=== PATIENT | female | born 1985 | race Caucasian/White ===

== ENCOUNTER → 2018-07-25 | Outpatient (CLI) | payer BC | LOC: FIMAGING 07:33 | PROVIDERS: ATTEND Advanced Practice Midwife | DX: Z34.91 Encounter for supervision of normal pregnancy, unspecified, first trimester (principal); Z3A.20 20 weeks gestation of pregnancy ==

== ENCOUNTER 2018-12-04 23:38 | Inpatient (IN) | payer BC ==
[2018-12-04] MEDS ORDERED: OLIVE OIL 118 ML BTL MISC ONE (23:53)
[2018-12-04] MEDS ORDERED: AMMONIA AROMATIC 1 EACH AMP IH ONE (23:53)
[2018-12-04] MEDS ORDERED: LIDOCAINE 1% 300 MG/30 ML SDV ONE (23:53)
[2018-12-04] MEDS ORDERED: TERBUTALINE SULFATE 1 MG/ML VIAL ONE (23:53)
[2018-12-04] MEDS ORDERED: OLIVE OIL 118 ML BTL MISC PRN (23:54)
[2018-12-04] MEDS ORDERED: OXYTOCIN 10 UNIT/ML VIAL ONE (23:54)
[2018-12-04] MEDS ORDERED: EPSOM SALT 454 GM TP PRN (23:54)
[2018-12-04] MEDS ORDERED: MISOPROSTOL 200 MCG TAB PO PRN (23:54)
[2018-12-04] MEDS ORDERED: AMMONIA AROMATIC 1 EACH AMP IH PRN (23:54)
[2018-12-04] MEDS ORDERED: TERBUTALINE SULFATE 1 MG/ML VIAL IV PRN (23:54)
[2018-12-04] MEDS ORDERED: MISOPROSTOL 200 MCG TAB ONE (23:54)
[2018-12-04] MEDS ORDERED: IBUPROFEN 600 MG TAB PO PRN (23:54)
[2018-12-04] MEDS ORDERED: LIDOCAINE 1% 300 MG/30 ML SDV SC PRN (23:54)
[2018-12-04] MEDS ORDERED: OXYTOCIN/RINGERS LACTATE 1,000 ML IV PRN (23:54)
[2018-12-04] MEDS ORDERED: LR 1,000 ML IV PRN (23:54)
--- NOTE | 2018-12-04 23:56 | PDGENHP ---
History and Physical History and Physical: CARE: [facility] HPI: Patient is a 43 yo G 3 P 2 @ 39.1 weeks who presents to L&D with complaints of strong uterine contractions for past 3 hours. EDC: 12/11/18 which is based on LMP: 03/06/18 which is known and consistent with Ultrasound at 8.5 weeks. Her is complicated by: hx of LGA baby, normal early 1 hr with this Review of Systems: Constitutional: Denies any fever, chills, or fatigue HEENT: denies any visual changes, difficulty swallowing, hearing loss Cardiovascular: Denies any chest pain, palpitations, leg swelling Respiratory: denies any cough, wheezing, or shortness of breathe GI: Denies any nausea, vomiting, diarrhea, constipation : denies any dysuria, urgency, frequency, vaginal bleeding Musculoskeletal: denies any muscle or bone pain Skin: denies any rashes Neuro: denies any headache, seizures, lightheadedness, dizziness, or loss of consciousness Psychiatric: denies any depression, anxiety, or SI/HI thoughts HISTORY: Previous OB history: 2014 girl 8#1 40 weeks, 2016 boy 9#15 41 weeks [facility] Family history: non-contributory Past medical history: denies Past surgical history: ear's pinned age 22, wisdom teeth Medications: PNV Allergies (list reaction): NKDA LABS: Rh: O+ ABS: Neg Rubella: Immune HbsAg: NR HIV: NR VDRL: NR 1hr: 96 GC: Neg Chlamydia: Neg Pap: Normal 2016 GBS: neg BMI: (prepreg) 18 PHYSICAL EXAM: Constitutional: WN, A&Ox3 HEENT: normocephalic atraumatic, supple Heart: RRR, no murmur Chest: CTA-B Skin: warm, dry, intact Abdomen: Soft, nontender, gravid SVE: 10/100/0 Extremities: trace edema, negative homans sign Neuro: grossly normal Psych: normal affect assessment: FHT baseline 145, +accels, no decels, moderate variability Contractions: toco q 3 min Assessment: 1)33 yo with IUP@ 39.1 weeks 2) spontaneous labor 3) GBS neg 4) Cat 1 FHR tracing Plan: 1) Admit to L&D 2) Anticipate
[2018-12-05] MEDS ORDERED: HYDROCORTISONE 0.5% CREAM TP PRN (01:17)
[2018-12-05 01:25] LABS: PLATELET COUNT 215 10^3/uL (150-400)
--- NOTE | 2018-12-05 01:26 | OBDEL ---
Info Type: Vaginal Presentation at Delivery: Vertex L&D Analgesia/Anesthesia Type: None GBS+: No - Hospital Course Intrapartum: 12/05/18 01:21 mom arrived completely dilated with some urge to push. Indications for Delivery: Spontaneous Labor Vaginal Delivery - Delivery Provider Delivery Physician/CNM: Mariela Lee - Labor and Delivery Onset of Contractions Date: 12/04/18 Onset of Contractions Time: 22:00 Onset of Contractions Type: Spontaneous Rupture of Membranes Date: 12/05/18 Rupture of Membranes Time: 00:15 Rupture of Membranes Type: Spontaneous Amniotic Fluid Color: Clear Dilation Complete Date: 12/04/18 Dilation Complete Time: 23:45 Placenta Delivery Date: 12/05/18 Placenta Delivery Time: 00:30 Total Hours of Labor: 2 Laceration: 1st Degree Repair: 3-0, Chromic Vaginal Sponge Count Correct: Yes Vaginal Needle Count Correct: Yes Vaginal Sweep Performed: Yes Delivery Events: None [place] Data DARRIAN: 12/11/18 Gestational Age: 39 week(s) and 1 day(s) Perez Delivery Date: 12/05/18 Delivery Time: 00:18 Sex of Infant: Female Score (1 Min): 7 Score (5 Min): 8 ICD10 Worksheet Patient Problems: Problems Problem Status Onset 40 weeks gestation of Acute Incomplete uterine prolapse Acute (normal spontaneous vaginal delivery) Acute - ICD10 Problem Qualifiers (1) Incomplete uterine prolapse (2) (normal spontaneous vaginal delivery)
[2018-12-05] MEDS ORDERED: OXYTOCIN/RINGERS LACTATE 500 ML IV SCH (01:30)
[2018-12-05] MEDS: CEPACOL LOZENGE PO PRN ×5 (06:37→23:12)
[2018-12-05] MEDS: ACETAMINOPHEN 325 MG TAB PO PRN ×3 (07:47→21:31)
[2018-12-05] MEDS: DOCUSATE SODIUM 100 MG CAP PO PRN ×2 (07:48→21:32)
[2018-12-05] MEDS: IBUPROFEN 600 MG TAB PO PRN ×3 (07:48→21:32)
[2018-12-05] MEDS ORDERED: EPSOM SALT 454 GM TP ONE (10:17)
--- NOTE | 2018-12-06 14:15 | OBPP ---
Progress Note Assessment/Plan: Assessment: 33 y/o P3 s/p ppd #1 anemia Plan: Routine pp care Ferrous sulfate daily Anticipate d/c tomorrow 12/06/18 15:28 Subjective/ Course: 12/06/18 15:29 Patient is doing well. Reports lochia to be light, pain controlled with oral medication, tolerating regular diet and voiding. is going well. Objective: 12/05/18 01:10 Patient ABO/Rh O POSITIVE 12/05/18 01:10 Temp Pulse Resp BP Pulse Ox 36.2 C 75 16 110/66 96 12/06/18 08:30 12/06/18 08:30 12/06/18 08:30 12/06/18 08:30 12/05/18 20:00 Uterine Position/Fundal Height: At Umbilicus Uterine Tone: Firm
[2018-12-06] MEDS: FERROUS SULFATE 325 MG TAB PO SCH (15:13)
[2018-12-07 07:31] VITALS: BP 113/82
[2018-12-07] MEDS: FERROUS SULFATE 325 MG TAB PO SCH (07:31)
[2018-12-07] MEDS: DOCUSATE SODIUM 100 MG CAP PO PRN (07:31)
[2018-12-07] MEDS ORDERED: EPSOM SALT 454 GM TP ONE (08:31)
[2018-12-07] MEDS ORDERED: EPSOM SALT 454 GM TP PRN (08:44)
--- NOTE | 2018-12-07 10:54 | OBGCSDC ---
General Delivery Information - General Info : 3 Para: 3 Abortions: 0 Type: Vaginal L&D Analgesia/Anesthesia Type: None Admission Date: 12/04/18 Labs: Patient ABO/Rh O POSITIVE 12/05/18 01:10 Hct 34.3 % (38.0-47.0) L 12/05/18 01:10 - Hospital Course Intrapartum: 12/05/18 01:21 mom arrived completely dilated with some urge to push. : 12/06/18 15:29 Patient is doing well. Reports lochia to be light, pain controlled with oral medication, tolerating regular diet and voiding. is going well. 12/07/18 10:53 S) Pt doing well, reports min pain and bleeding. she is ambulating and voiding without difficulty. She is . She desires discharge home today. O) VSS, afebrile constitutional: WNWF, A&Ox3 HEENT: normocephalic, atraumatic, supple Heart: RRR, No murmur Chest: CTA-B Abdomen: Soft, nontender Uterus: Firm at U-2 Lochia: Minimal rubra Perineum: Intact, healing well Extremities: Trace edema, and negative Chadd's sign Neuro: Grossly normal A) 33 year-old S/P PPD#2 P) Discharge home today Continue Pelvic rest x6wks Discussed danger signs (infection, preeclampsia, depression, heavy bleeding, etc) RTO in 2/4/6 weeks Vaginal - Delivery Provider Delivery Physician/CNM: Mariela Lee - Diagnosis Labor: Spontaneous Rupture of Membranes Type: Spontaneous Amniotic Fluid Color: Clear Laceration: 1st Degree Repair: 3-0, Chromic Delivery Events: None [place] Data DARRIAN: 12/11/18 Gestational Age: 39 week(s) and 3 day(s) Perez Delivery Date: 12/05/18 Delivery Time: 00:18 Sex of : Female [place] Weight (gm): 3940.584 g Score (1 Min): 7 Score (5 Min): 8 Discharge Information - Discharge Information Prescriptions: Docusate Sodium [Colace 100 MG (*)] 100 mg PO BID PRN #60 cap PRN Reason: Constipation Ferrous Sulfate [Ferrous Sulf 325 MG (*)] 325 mg PO DAILY #60 tab Condition: Good
== END 2018-12-07 11:10 | disposition home or self-care (01) | DRG 807 ==
LOC: FLD 23:38 → FOB 12-05 03:45
PROVIDERS: ADMIT Advanced Practice Midwife; ATTEND Advanced Practice Midwife
PROC: 10E0XZZ Delivery of Products of Conception, External Approach (ICD-10-PCS; principal; 2018-12-04)
PROC: 0HQ9XZZ Repair Perineum Skin, External Approach (ICD-10-PCS; principal; 2018-12-04)
DX: O70.0 First degree perineal laceration during delivery (principal); O90.81 Anemia of the puerperium; O34.593 Maternal care for other abnormalities of gravid uterus, third trimester; Z3A.39 39 weeks gestation of pregnancy; Z37.0 Single live birth
CPT/HCPCS: J2590; J3105